=== PATIENT | female | born 1990 | race Caucasian/White ===

== ENCOUNTER → 2020-05-12 14:07 | Outpatient (CLI) | payer BC, SELFPAY ==
[2020-05-12 14:25] LABS: Add Manual Diff / Slide Review NO; Basophils Absolute Auto 0 /uL (0-100); Basophils Percent Auto 0.6 % (0-2); Eosinophils Absolute Auto 200 /uL (0-450); Hematocrit 38.7 % (36-46); Hemoglobin 13.1 g/dL (12.0-16.0); Lymphocytes Absolute Auto 1700 /uL (1100-4500); Lymphocytes Percent Auto 20.8 % (25-40); Mean Corpuscular HGB Conc 33.8 % (30-36); Mean Corpuscular Hemoglobin 30.7 PG (26-34); Mean Corpuscular Volume 90.6 fL (80-100); Monocytes Absolute Auto 700 /uL (0-900); Monocytes Percent Auto 8.6 % (3-14); Neutrophils Absolute Auto 5600 /uL (1500-7000); Platelet Count 235 X10^3/uL (150-400); Red Blood Cell Count 4.27 X10^6/uL (4.0-5.2); Red Cell Distribution Width 13.1 % (11.6-14.8); White Blood Cell Count 8.3 X10^3/uL (4.5-11.0)
[2020-05-12 15:28] LABS: Appearance Urine UA CLEAR; Bilirubin Urine UA NEGATIVE (NEGATIVE); Color Urine UA YELLOW; Glucose Urine UA 2+ g/dL (Negative); Ketones Urine UA NEGATIVE (NEGATIVE); Leukocyte Esterase Urine UA NEGATIVE (NEGATIVE); Nitrite Urine UA NEGATIVE (Negative); Occult Blood Urine UA TRACE-INTACT (Negative); Protein Urine UA NEGATIVE (Negative); Urobilinogen Urine UA 0.2 E.U./dL (0.2)
[2020-05-13 07:37] LABS: Varicella IgG Antibody 1214 index (Immune >165)
[2020-05-13 08:17] LABS: RPR Screen Non Reactive (Non Reactive)
[2020-05-14 05:17] LABS: Hepatitis B Surface Antigen NEGATIVE s/c (NEGATIVE); Rubella Antibody IgG 24.7 IU/mL (>15)
[2020-05-14 05:35] LABS: Hep C Virus Ab w/Reflex Quant NEGATIVE s/c (NEGATIVE)
[2020-05-14 09:21] LABS: HIV 1 & 2 Ab/Ag 4th Gen Combo NEGATIVE (NEGATIVE)
== END ==
PROVIDERS: Referring Provider Specialist; Visit Provider Specialist
DX: Z34.01 Encounter for supervision of normal first pregnancy, first trimester (principal)
CPT/HCPCS: 36415; 80055; 81003; 86787; 86803; 86850; 86900; 86901; 87086; 87389

== ENCOUNTER 2020-05-26 10:49 | Emergency (ER) | payer BC, SELFPAY ==
[2020-05-26 10:57] VITALS: BP 118/61; PULSE 94; RESP 16; TEMP 36.9; O2SAT 99
[2020-05-26] MEDS: ACETAMINOPHEN 325 MG TABLET 650 MG PO (11:16)
[2020-05-26] MEDS: LIDOCAINE PATCH 1 EACH ADH..PATCH TOP (11:17)
--- NOTE | 2020-05-26 11:20 | ED_ITS ---
HPI - Back Pain/Injury <Genaro Randolphskip [facility] - Last Filed: 05/26/20 12:11> General Chief Complaint: Back Pain/Injury Stated Complaint: pain in right leg x 2 weeks Time Seen by Provider: 05/26/20 10:52 Source: patient and family Mode of arrival: Wheelchair Limitations: no limitations History of Present Illness HPI Narrative: This is a 29 year female, nonsmoker, who is currently 11 wk +5 d ay EGA with LMP 03/05/2020 without contributory medical history presents to ED with significant other with chief complain of right low back pain radiating down to buttock and posterior leg up to knee for last 2 weeks. Patient denies injury, fall prior to discomfort occurred. Patient denies numbness, weakness to lower extremities, incontinence, rash on her back. She denies fever, chills, nausea or vomiting, urinary symptoms. She has not been taking any medications at home including Tylenol since she was in short this was safe during . Patient reports pain is not constant but rather intermittent, worsening with certain movements or laying on right side of back. Patient denies pain with sitting. Patient denies history of back pain. She does not have PCP but has seen Dr. Butler for 1st OB evaluation. Related Data Home Medications Medication Instructions Recorded Confirmed prenat.vits,luis,[id number] 1 tab PO DAILY 05/11/20 05/11/20 Previous Rx's Medication Instructions Recorded lidocaine 1 patch TOPICAL DAILY PRN #30 ea 05/26/20 Allergies Allergy/AdvReac Type Severity Reaction Status Date / Time No Known Drug Allergies Allergy Verified 05/11/20 12:13 Review of Systems <Genaro Tomasaskip [facility] - Last Filed: 05/26/20 12:11> Review of Systems Narrative: General: Denies fever, chills, fatigue, malaise, sweats. HEENT: Denies sinus pain, ear pain, sore throat, difficulty swallowing, dizziness. Respiratory: Denies dyspnea, cough, wheezing, hemoptysis, sputum. Cardiovascular: Denies chest pain, palpitations, orthopnea, edema. Gastrointestinal: Denies nausea, vomiting, abdominal pain, diarrhea, constipation, melena. : Denies dysuria, frequency, incontinence, hematuria, urinary retention. Musculoskeletal: See HPI Skin: Denies rash, skin lesions, or other. Neurologic: Denies weakness, headache, numbness, change in speech, confusion, seizures, incoordination. Psychiatric: No concerning psychosocial issues. 12-point review of systems is negative except for those stated above. Patient History <HUY Yousif - Last Filed: 05/26/20 12:11> Surgical History S/P LASIK surgery of both eyes (~2017) Family History Mother No problems noted. Father Hypertension Grandmother Stroke due to embolism Grandfather No problems noted. Grandmother Family estrangement Grandfather Cerebral thrombosis Family/Other Cancer Social History marital status: household members: spouse lives independently: Yes caregiver/support person: No housing: house pets and animals: Yes (1 dog: should be safe w baby.) education level: master's degree occupational status: employed current occupational exposures/hazards: No special ade needs: No seatbelt use: always Smoking Status: Never smoker second hand exposure: No ( smokes, but not around her.) alcohol intake: former substance use type: does not use and marijuana during the past year weight has: remained stable daily servings fruits/ve-4 caffeine: No frequency: does not exercise Smoking Status: Never smoker Substance Use Type: does not use Exam <HUY Yousif - Last Filed: 05/26/20 12:11> Narrative Exam Narrative: GEN: Alert, oriented x 3, well appearing and nourished, and in no acute distress. Head: Normal cephalic, atraumatic. No scalp or temporal tenderness, palpable mass or rash. EYES: Pupils are equal, round, and reactive to light and accommodation. Extraocular muscles are intact bilaterally. There is no subconjunctival hemorrhage, exudate and sclera non-icteric. ENT: Hearing grossly intact. Nose without bleeding, purulent discharge or deviation. Mucous membrane moist, no mucosal lesion. Throat without erythema, tonsillar hypertrophy or exudate. Uvula in midline, airway patent. Neck: Trachea in midline. No JVD, non-tender without lymphadenopathy. No masses or thyroid megaly. Supple, non-tender and no meningeal signs. CARDIAC: Normal regular rate and rhythm without murmurs, gallops, or rubs. No chest wall tenderness. No peripheral edema, cyanosis or pallor. Capillary refill is less than 2 seconds. RESPIRATORY: Lungs are clear to auscultate bilaterally. No cough, wheezes, rales, or rhonchi. No stridor, respiratory distress, increase work of breathing, or accessary muscle used. ABD: Abdomen soft, nontender and non-distended. No guarding or rebound tenderness to palpate. Bowel sounds are normal in all 4 quadrants. There is no palpable masses or organomegaly. EXT: Full painless ROM of all extremities with no loss of sensation, strength, effusion or edema. SKIN: Warm, dry, normal color for patient. No erythema, lesions or rash over visible areas. BACK: Nontender without deformity or crepitance. No flank tenderness. No rash. Negative leg raise. NEUROLOGICAL: Alert and oriented to place, time and person. Sensation and motor function intact bilaterally. No facial droops, dysphasia. PSYCHIATRIC: Good judgement and reason, without hallucinations, abnormal affect or abnormal behaviors during the examination. Patient is not suicidal. Initial Vital Signs Initial Vital Signs: Vital Signs Temperature 98.4 F 05/26/20 10:57 Pulse Rate 94 H 05/26/20 10:57 Respiratory Rate 16 05/26/20 10:57 Blood Pressure 118/61 05/26/20 10:57 Pulse Oximetry 99 05/26/20 10:57 <Marielle Sargent DO - Last Filed: 05/26/20 13:21> Initial Vital Signs Initial Vital Signs: Vital Signs Temperature 98.4 F 05/26/20 10:57 Pulse Rate 94 H 05/26/20 10:57 Respiratory Rate 16 05/26/20 10:57 Blood Pressure 118/61 05/26/20 10:57 Pulse Oximetry 99 05/26/20 10:57 Scores <HUY Yousif - Last Filed: 05/26/20 12:11> GCS Reuben coma scale eye opening: Spontaneous [place] coma scale verbal response: Orientated [place] coma scale motor response: Obey commands Reuben coma scale total score: 15 qSOFA Altered Mental Status (GCS <15): No Respiratory rate greater than/equal to 22: No Systolic blood pressure less than or equal to 100: No qSOFA Total: 0 0-1 Not High Risk 1-3 High risk Course <HUY Yousif - Last Filed: 05/26/20 12:11> Orders Ordered: Discontinued Medications Acetaminophen (Acetaminophen 325 Mg Tablet) 650 mg PO NOW ONE Stop: 05/26/20 11:11 Last Admin: 05/26/20 11:16 Dose: 650 mg Documented by: RUSS Lidocaine (Lidocaine Patch 1 Each Adh..Patch) 1 each TOP NOW ONE Stop: 05/26/20 11:11 Last Admin: 05/26/20 11:17 Dose: 1 each Documented by: RUSS Lidocaine (Remove Lidocaine Patch) 1 each TOP BEDTIME BORA Vital Signs Vital signs: Vital Signs - 8 hr 05/26/20 10:57 05/26/20 12:18 Temperature 98.4 F Pulse Rate 94 H 73 Respiratory Rate 16 15 Blood Pressure 118/61 115/57 L Pulse Oximetry 99 98 <Marielle Sargent DO - Last Filed: 05/26/20 13:21> Orders Ordered: Discontinued Medications Acetaminophen (Acetaminophen 325 Mg Tablet) 650 mg PO NOW ONE Stop: 05/26/20 11:11 Last Admin: 05/26/20 11:16 Dose: 650 mg Documented by: RUSS Lidocaine (Lidocaine Patch 1 Each Adh..Patch) 1 each TOP NOW ONE Stop: 05/26/20 11:11 Last Admin: 05/26/20 11:17 Dose: 1 each Documented by: RUSS Lidocaine (Remove Lidocaine Patch) 1 each TOP BEDTIME BORA Vital Signs Vital signs: Vital Signs - 8 hr 05/26/20 10:57 05/26/20 12:18 Temperature 98.4 F Pulse Rate 94 H 73 Respiratory Rate 16 15 Blood Pressure 118/61 115/57 L Pulse Oximetry 99 98 MDM - Back Pain/Injury <HUY Yousif - Last Filed: 05/26/20 12:11> Differential Diagnosis Differential diagnosis: Likely lumbar radiculopathy, sciatica, strain of lumbar region, renal colic and other (UTI) Medical Records Attestation: I reviewed the patient's medical records. Lab Data Attestation: I reviewed the patient's lab results. Labs: Point of Care Testing Glucose POC 81 Urine Dip Bedside Urine Glucose 1000 mg/dl Bedside Urine Ketone - Negative Urine Specific [place] 1.015 Bedside Urine Occult Blood - Negative Bedside Urine pH 6.0 Bedside Urine Urobilinogen +/- 1mg Bedside Urine Nitrite - Negative Bedside Urine Leukocytes - Negative Esterase MDM Narrative Medical decision making narrative: This is a 29-year-old female who presents to ED with chief complain of non traumatic right low back pain radiating down to buttock and up to posterior knee for last 2 weeks. No red flag symptoms related to back pain. She has not tried any home therapy since she is with 1st child and is currently in 1st trimester EGA. Patient was medicated with Tylenol and lidocaine patch with good effect and advised to same treatment at home. Urine test obtained to rule out UTI etiology for back pain which was negative indications for infection but shows greater than 1000 urine glucose. Concerned for increased serum glucose, POC fingerstick glucose obtained which shows as 81 mg/dL. Patient advised to follow-up with Dr. Butler who can monitor glucose closely during which she verbalized understanding. Return precautions discussed with patient and she verbalized understanding in agreement with the treatment plan. <Marielle Sargent, - Last Filed: 05/26/20 13:21> Lab Data Labs: Point of Care Testing Glucose POC 81 Urine Dip Bedside Urine Glucose 1000 mg/dl Bedside Urine Ketone - Negative Urine Specific [place] 1.015 Bedside Urine Occult Blood - Negative Bedside Urine pH 6.0 Bedside Urine Urobilinogen +/- 1mg Bedside Urine Nitrite - Negative Bedside Urine Leukocytes - Negative Esterase Discharge Plan Departure Patient Disposition: Home Clinical Impression: Glucose found in urine on examination Sciatica Qualifiers: Laterality: right Qualified Code(s): M54.31 - Sciatica, right side Instructions: DI for Back Pain With Sciatica Activity Restrictions/Additional Instructions: You have been diagnosed with [low back pain likely sciatica in right side. No indications for urinary tract infection. Incidental finding of glucose in urine. Fingerstick blood glucose was normal as 81 mg/dL. This should be followed up with Dr. Butler.]. What to do: *Take your medications as directed. You can take [id number] Tylenol 650- 1000 mg up to 3 to 4 times a day as needed for pain. You can continue to use lidocaine patch on affected site which stays on for 12 hours and off for 12 hours as needed for pain. As acute pain improves, please do gentle stretching exercise. Lidocaine patch has been transmitted to [facility] in [facility]. If this is too expensive, you can purchase [id number] lidocaine patch which is 4%. *Follow up with your primary care provider in 2-3 days, call for an appointment. Let them know you were seen in the ED and that we asked you to be seen in follow up. *Return to ED if you have any new, worsening, or concerning symptoms, such as [worsening pain, weakness/numbness/tingling in lower extremities, incontinence for bowel and bladder function, rash on her back, fever, or any acute concerns]. Prescriptions: New lidocaine 5 % adhesive patch,medicated 1 patch topical DAILY PRN (Reason: back pain) Qty: 30 RF: 0 No Action prenat.vits,luis,vpf-[id number] Tablet 1 tab PO DAILY RF: 0 Referrals: [facility] [Outside] Rachel Butler MD [Physician] - Stand Alone Forms: Work Release Note <Marielle Sargent DO - Last Filed: 05/26/20 13:21> Cosign ED Attending Benjaature Attestation: I was immediately available in the department for consultation. Documentation has been reviewed. I agree with assessment and plan.
[2020-05-26 12:18] VITALS: BP 115/57; PULSE 73; RESP 15; O2SAT 98
== END 2020-05-26 12:19 | disposition home or self-care (01) ==
PROVIDERS: Emergency Provider Nurse Practitioner Family
DX: M54.31 Sciatica, right side (principal); R81 Glycosuria
CPT/HCPCS: 81003; 82962; 99281; 99282

== ENCOUNTER → 2020-07-11 12:39 | Outpatient (CLI) | payer BC, SELFPAY ==
[2020-07-13 20:12] LABS: AFP, Serum 43.2 ng/mL (.); Calc Gestational Age Ultrasound (.); Estriol, Free 1.47 ng/mL (.); Inhibin A, Dimeric 270.09 pg/mL (.); Inhibin A, MoM 1.52 (.); Maternal Ethnicity Caucasian (.); Maternal Weight 125 lbs (.); Number of Fetuses No (.); OSBR Risk 1 IN 10000 (.); Results Report (.); Test Results *Screen Negative* (.); hCG, MoM 1.59 (.); hCG, Serum 49211 mIU/mL (.)
== END ==
PROVIDERS: Referring Provider Specialist; Visit Provider Specialist
DX: Z34.02 Encounter for supervision of normal first pregnancy, second trimester (principal); Z3A.18 18 weeks gestation of pregnancy
CPT/HCPCS: 36415; 82105; 82677; 84702; 86336

== ENCOUNTER → 2020-08-07 | Outpatient (CLI) | payer BC, OTHER, MEDICAID, SELFPAY ==
--- NOTE | 2020-08-07 15:07 | DI.US.S_ITS ---
PROCEDURE: US OB >= 14 WEEKS FETUS INDICATIONS: ANATOMY OUTSIDE/PRIOR DATING DATA: Last menstrual period (LMP): 03/05/20. LMP-based estimated date of delivery (ANALI): 12/10/20 . First dating scan (date and location): 05/12/20, by Dr. Butler . Estimated date of delivery (ANALI) from first dating scan: 12/09/20, by Dr. Butler . TECHNIQUE: Real-time scanning was performed of the fetus, with image documentation and biometric measurements. Endovaginal scanning: Not needed COMPARISON: [facility], , OB >= 14 WEEKS FETUS, 07/11/2020, 12:27. FINDINGS: General: A single living intrauterine gestation is present. Presentation: Vertex. Placenta: Placental position is posterior , without previa. Amniotic fluid index: 12.5 cm, normal range is 5-24 cm. heart rate: 160 beats per minute. Maternal cervical canal: 3.6 cm long. Normal lower limit is 2.5 cm. biometrics: Biparietal diameter: 5.8 cm, 23 weeks 5 days Head circumference: 20.3 cm, 22 weeks 3 days Abdominal circumference: 18.1 cm, 22 weeks 6 days Femur length: 3.7 cm, 21 weeks 6 days Estimated gestational age from initial scan: 22 weeks 2 days Composite gestational age from present scan: 22 weeks 5 days Estimated weight and percentile: 511 g, 56th percentile Measurement variability for biometric dating: +/- 7 days from 14 weeks to 15 weeks 6 days gestation, +/- 10 days from 16 weeks to 21 weeks 6 days gestation, +/- 2 weeks from 22 weeks to 27 weeks 6 days gestation, +/- 3 weeks for 28 weeks gestation or later. weight reference: 4500 g or EFW >90/95% is considered macrosomia or large for gestational age. EFW <10% is small for gestational age. EFW 5% or less is considered intra-uterine growth restriction. Anatomic survey: Neuro: Ventricles are non-dilated at less than 10 mm. Cisterna magna is normal at 3-11 mm. Cerebellum is normal in size and morphology. Nuchal skin fold: Normal at less than 6 mm between 14-21 weeks gestational age. Face: Nose and lips, facial profile are normal. Spine: No evidence for spina bifida. Heart: 4-chambered heart is present, with normal ventricular outflow tracts. Diaphragm: Diaphragm is intact. Stomach: Left-sided stomach is present. Kidneys: Mild right-sided hydronephrosis. Normal is less than 5 mm in 2nd trimester, less than 7 mm in 3rd trimester. Cord: 3-vessel cord has orthotopic insertion. Bladder: Normal in size. Extremities: All 4 extremities identified. IMPRESSION: Normal survey of anatomy except for mild right-sided hydronephrosis at the threshold for hydronephrosis at 5 mm. Third trimester assessment of renal caliber on the right is recommended. Appropriate interval growth, normal amniotic fluid volume, vertex presentation. Dictated by: Kenneth Allen M.D. on 08/07/2020 at 17:38 Approved by: Kenneth Allen M.D. on 08/07/2020 at 17:42
== END ==
PROVIDERS: Referring Provider Specialist; Visit Provider Specialist
DX: Z34.02 Encounter for supervision of normal first pregnancy, second trimester (principal); Z3A.22 22 weeks gestation of pregnancy
CPT/HCPCS: 76811

== ENCOUNTER → 2020-08-28 13:31 | Outpatient (CLI) | payer BC, OTHER, MEDICAID, SELFPAY ==
[2020-08-28 15:23] LABS: Hematocrit 33.6 % (36-46); Hemoglobin 11.3 g/dL (12.0-16.0)
[2020-08-28 16:48] LABS: GTT (PREG) 1 Hour PP 50gm Dose 154 mg/dL (76-139)
== END ==
PROVIDERS: Referring Provider Specialist; Visit Provider Specialist
DX: Z34.82 Encounter for supervision of other normal pregnancy, second trimester (principal); Z3A.25 25 weeks gestation of pregnancy
CPT/HCPCS: 36415; 82950; 85014; 85018

== ENCOUNTER → 2020-10-06 12:46 | Outpatient (CLI) | payer OTHER, MEDICAID, SELFPAY ==
--- NOTE | 2020-10-06 12:48 | DI.US.S_ITS ---
PROCEDURE: US OB FOLLOW UP INDICATIONS: F/U HYDRONEPHROSIS OUTSIDE/PRIOR DATING DATA: Last menstrual period (LMP): 03/05/2020. LMP-based estimated date of delivery (ANALI): 12/10/2020 . First dating scan (date and location): 05/12/2020 Estimated date of delivery (ANALI) from first dating scan: 12/09/2020 . TECHNIQUE: Real-time scanning was performed of the fetus, with image documentation and biometric measurements. Endovaginal scanning: No COMPARISON: [facility], , OB >= 14 WEEKS FETUS, 08/07/2020, 15:15. FINDINGS: General: A single living intrauterine gestation is present. Presentation: Vertex. Placenta: Placental position is posterior , without previa. Amniotic fluid index: 13.6 cm, normal range is 5-24 cm. heart rate: 150 beats per minute. Maternal cervical canal: 3.1 cm long. Normal lower limit is 2.5 cm. Renal pelves are normal measuring 2 mm bilaterally. IMPRESSION: Single living IUP redemonstrated and no hydronephrosis is present. Dictated by: Morteza Alexander [facility] Interpreted: Arthur Ledezma MD on 10/06/2020 at 13:53 Transcribed by: ABRAM on 10/06/2020 at 13:56 Approved by: Arthur Ledezma M.D. on 10/06/2020 at 14:46
== END ==
PROVIDERS: Referring Provider Obstetrics & Gynecology; Visit Provider Obstetrics & Gynecology
DX: Z36.2 Encounter for other antenatal screening follow-up (principal); Z3A.26 26 weeks gestation of pregnancy
CPT/HCPCS: 76816

== ENCOUNTER → 2020-11-17 15:56 | Outpatient (CLI) | payer OTHER, MEDICAID, SELFPAY ==
[2020-11-18 13:12] LABS: Strep Grp B PCR NEG for Grp B Strep
== END ==
PROVIDERS: Visit Provider Specialist
DX: Z34.03 Encounter for supervision of normal first pregnancy, third trimester (principal); Z3A.35 35 weeks gestation of pregnancy
CPT/HCPCS: 87653

== ENCOUNTER 2020-12-04 15:39 | Inpatient (IN) | payer OTHER, MEDICAID, SELFPAY ==
--- NOTE | 2020-12-04 17:13 | P.HPOB_ITS ---
OB HPI Date/Time Date of admission: 12/04/20 Date Patient Seen: 12/04/20 Time Patient Seen: 17:13 History of Present Condition Chief complaint: Observation : 1 Para: 0 Estimated Date of Delivery: 12/10/20 Estimated Gestational Age (weeks): 38 Narrative: Adamaris Ledezma is a 30 year old female who had been scheduled for primary low-transverse section for LGA arrived on Labor and delivery with PROM Indications Operative indications ( section): elective (4500 g fetus on ultrasound with gestational diabetes on metformin) History of Present care: good care, initiated at week # (9), number of visits (10) and pounds weight gain (51) Dating criteria: LMP confirmed by 1st trimester US Ultrasounds: normal mid trimester US Obstetrical complications: gestational diabetes (on metformin) Medical complications: none Preadmission Labs Blood type: AB (+) positive -: Antibody screen: negative, GBS status: negative, HBsAG: negative, HIV: negative and RPR/VDLR: negative -: Chlamydia screen: not detected and Gonorrhea screen: not detected -: Rubella: immune and Varicella: immune HCAB: negative Quad screen: Normal 1 hr GTT: 157 Narrative: Patient unable to tolerate 3 hour glucose tolerance test. She monitored blood sugars with diet control and was started on metformin Evaluation Evaluation Baseline heart rate: 130 Variability: Moderate (11-25) monitor accelerations: Present Monitor Decelerations: Absent Contraction Frequency (minutes): 0 Category of Tracing: Reactive Status: Category l Cervical dilation (cm): 1 Cervical effacement (%): 50 station: -3 Non-invasive Membranes Rupture Test: positive [facility] Surgical History S/P LASIK surgery of both eyes (~2017) Family History Mother No problems noted. Father Hypertension Grandmother Stroke due to embolism Grandfather No problems noted. Grandmother Family estrangement Grandfather Cerebral thrombosis Family/Other Cancer Social History marital status: household members: spouse lives independently: Yes caregiver/support person: No housing: house pets and animals: Yes (1 dog: should be safe w baby.) education level: master's degree occupational status: employed current occupational exposures/hazards: No special ade needs: No seatbelt use: always Smoking Status: Never smoker second hand exposure: No ( smokes, but not around her.) alcohol intake: former substance use type: does not use and marijuana during the past year weight has: remained stable daily servings fruits/ve-4 caffeine: No frequency: does not exercise Meds Home Medications and Allergies Home Medications Medication Instructions Recorded Confirmed Type prenat.vits,luis,kik-rkdu-ywsit 1 tab PO DAILY 05/11/20 12/04/20 History lidocaine 5 % topical patch 1 patch TOPICAL DAILY PRN #30 ea 05/26/20 12/04/20 Rx blood-glucose meter #1 ea 09/21/20 11/28/20 Rx lancets 30 gauge and blood glucose #100 ea 11/01/20 11/28/20 Rx strips combo pack metformin 500 mg tablet 500 mg PO BID #60 tab 11/01/20 12/04/20 Rx Allergies Allergy/AdvReac Type Severity Reaction Status Date / Time No Known Drug Allergies Allergy Verified 11/28/20 15:22 Review of Systems Review of Systems Narrative: Patient had leakage of fluid but no contractions. Good movement. No headaches, scotomata, epigastric pain. Exam Vital Signs (past 8 hours): Blood pressure 129/84, pulse of 80, temperature 36.7? Narrative Exam Narrative: HEENT exam within normal limits. Lungs are clear to auscultation percussion. Heart is regular rate and rhythm no S3-S4 murmurs. Abdomen is gravid. Fetus is vertex. Extremities without edema and nontender. Assessment and Plan Assessment and Plan Assessment and Plan narrative: 38 week gestation with gestational diabetes on metformin who had premature rupture membranes without labor. Patient is scheduled for section for 4500 g baby. 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 The risk of damage to internal structures such as bowel, bladder, ureters that could require additional surgery to repair. Possible risk of infection and bleeding that could require a blood transfusion. Reaction to medication or anesthesia. Consent form signed and questions answered. cosigned the consent form.
[2020-12-04] MEDS: LACTATED RINGERS 1,000 ML 100 ML IV ×3 (17:30→20:15)
[2020-12-04 17:35] LABS: Add Manual Diff / Slide Review NO; Basophils Absolute Auto 100 /uL (0-100); Eosinophils Absolute Auto 100 /uL (0-450); Hematocrit 34.4 % (36-46); Hemoglobin 11.2 g/dL (12.0-16.0); Lymphocytes Absolute Auto 1600 /uL (1100-4500); Lymphocytes Percent Auto 23.9 % (25-40); Mean Corpuscular HGB Conc 32.7 % (30-36); Mean Corpuscular Volume 79.6 fL (80-100); Monocytes Absolute Auto 600 /uL (0-900); Monocytes Percent Auto 9.6 % (3-14); Neutrophils Absolute Auto 4200 /uL (1500-7000); Neutrophils Percent Auto 64.5 % (50-75); Platelet Count 243 X10^3/uL (150-400); Red Blood Cell Count 4.31 X10^6/uL (4.0-5.2); White Blood Cell Count 6.6 X10^3/uL (4.5-11.0)
[2020-12-04 17:56] LABS: COVID19 - ADMIT (NP swab/PCR) Negative (Negative)
[2020-12-04] MEDS: CEFAZOLIN 1 GM VIAL 2 GM IV (18:26)
--- NOTE | 2020-12-04 18:44 | SUR.OPER ---
Supine on Padded OR bed, head on pillow, safety belt at thigh, arms secured on padded arm boards at <90 degrees abduction. Bump under right buttock. Legs uncrossed with pillow under knees, gel pad to heels, tape over blanket to lower legs.
--- NOTE | 2020-12-04 18:48 | SUR.OPER ---
VIABLE MALE INFANT DELIVERED AT 1837. CORD BLOOD AND PLACENTA TO OB WITH RN.
[2020-12-04 19:12] VITALS: BP 108/45; PULSE 70; RESP 16; TEMP 36.3; O2SAT 100
[2020-12-04 19:17] VITALS: BP 106/64; PULSE 70; RESP 14; O2SAT 100
[2020-12-04 19:19] VITALS: BP 106/64; PULSE 69; RESP 14; O2SAT 99
--- NOTE | 2020-12-04 19:19 | PM.OBCS.1 ---
Operative Date/Time/Diagnoses Date of procedure: 12/04/20 Time of procedure: 19:19 Pre-op diagnosis: 38 week gestation, PROM, gestational diabetes, and LGA infant for primary low-transverse section Post-op diagnosis: same Procedure & Clinicians Procedure: Primary low-transverse section Same procedure as scheduled: Yes Indications: 38 week gestation with PROM who had been scheduled for primary low-transverse section for gestational diabetes and measuring by ultrasound approximately 4500 g. Surgeon: Rachel Butler [employer] Technician: Tammi Vilchis Anesthesia Type: Spinal Operative Notes Findings: Normal tubes, ovaries, uterus. Viable male with Apgars of 9 and 9 weighing 9 lb 8.9 oz Closure Type: primary Specimen(s): cord blood Intraoperative meds administered: Duramorph, Ketorolac and Pitocin Applied: Catheter (Tenorio) Estimated Blood Loss (mL): 300 Blood products transfused: none Complications: none [facility] Baby 1: Gender: Male Presentation: vertex Position: Left Occiput Transverse Placental Delivery Description: Expressed Cord Vessel Description: 3 Vessels score (1 min): 9 score (5 min): 9 weight: 9 lb 8 oz Narrative: The patient was brought to the operating room where she underwent a spinal for anesthesia. She was placed in a supine position with a left lateral tilt. A Tenorio catheter was placed. Pulsatile stockings were placed and functional throughout the case. 2 g of Ancef were given IV prior to the incision. Warming was in place. The patient was prepped and draped in usual sterile fashion. A low transverse incision was made with a scalpel and the incision was carried down to the fascial layer which was incised transversely with scissors. The public aid eligibility assistant did her side of the incision. The midline attachments are superiorly and inferiorly. Some bleeding was controlled Bovie. The rectus muscles were in the midline and the peritoneal incision was made with no damage to internal structures. The peritoneum was incised and superiorly and inferiorly. The incision was stretched with the surgeon and public aid eligibility assistant placing traction. Bladder blade was placed and a bladder flap was developed and the bladder held away from the lower uterine segment. An incision was made in the uterus with the scalpel and the incision was extended with stretching. The head was elevated out of the abdomen and with fundal pressure by the public aid eligibility assistant the baby was delivered. The infant was bulb suctioned for clear fluid and handed off to the warmer. Cord blood was collected. The placenta delivered spontaneously with traction. The uterus was cleaned with clean laps. The uterine incision was closed in 2 layers of 0 chromic suture the first a running locking layer the second an imbricating layer. The public aid eligibility assistant was helping to expose the incision. The bladder peritoneum was repaired with 2-0 Vicryl suture. The gutters were cleaned of any remaining fluids and ovaries and tubes were observed to be normal. Adequate hemostasis was noted. The peritoneum was closed with 2-0 Vicryl suture. The fascia layer was closed with 0 Vicryl suture with 2 stitches. The public aid eligibility assistant repairing half the incision with helping to retract and expose the incision for the other half. The incision was irrigated and adequate hemostasis noted. The incision was closed with interrupted 3-0 Vicryl sutures and then a subcuticular stitch of 4-0 Vicryl suture. Steri-Strips were placed. The uterus was massaged to remove any clots. The patient went to recovery room in good condition. Counts of instruments and sponges were correct. Dr. Vilchis was present throughout the case to assist with retraction, fundal pressure to deliver the infant, and suturing half the fascia. Post-operative Condition: stable Disposition: other ( Center) Aftercare: routine postop
[2020-12-04 19:24] VITALS: BP 104/67; PULSE 69; RESP 16; TEMP 36.6; O2SAT 99
--- NOTE | 2020-12-04 19:27 | SUR.PHASEI ---
[id number] =[id number]
--- NOTE | 2020-12-04 19:32 | SUR.PHASEI ---
pain level 3/10 crampy pain.
[2020-12-04 20:56] VITALS: BP 111/67
[2020-12-05] MEDS: KETOROLAC 30 MG/ML VIAL IV ×2 (01:43→07:54)
[2020-12-05] MEDS: LACTATED RINGERS 1,000 ML 100 ML IV (03:54)
[2020-12-05] MEDS: diphenhydrAMINE 50 MG/ML VIAL 25 MG IV (04:25)
[2020-12-05 06:24] LABS: Add Manual Diff / Slide Review NO; Basophils Absolute Auto 0 /uL (0-100); Basophils Percent Auto 0.2 % (0-2); Eosinophils Absolute Auto 100 /uL (0-450); Eosinophils Percent Auto 0.9 % (2-4); Hematocrit 27.3 % (36-46); Hemoglobin 8.8 g/dL (12.0-16.0); Lymphocytes Absolute Auto 1000 /uL (1100-4500); Lymphocytes Percent Auto 14.4 % (25-40); Mean Corpuscular HGB Conc 32.4 % (30-36); Mean Corpuscular Volume 80.2 fL (80-100); Monocytes Absolute Auto 600 /uL (0-900); Monocytes Percent Auto 8.3 % (3-14); Neutrophils Absolute Auto 5500 /uL (1500-7000); Neutrophils Percent Auto 76.2 % (50-75); Platelet Count 177 X10^3/uL (150-400); Red Blood Cell Count 3.41 X10^6/uL (4.0-5.2); Red Cell Distribution Width 15.8 % (11.6-14.8); White Blood Cell Count 7.2 X10^3/uL (4.5-11.0)
[2020-12-05] MEDS: ACETAMINOPHEN 325 MG TABLET 650 MG PO ×3 (07:55→22:27)
[2020-12-05] MEDS: FERROUS SULFATE 325 MG TABLET PO (11:25)
[2020-12-05] MEDS: DOCUSATE 100 MG CAPSULE 200 MG PO (11:25)
[2020-12-05] MEDS: PRENATAL VIT,CALC/IRON/FOLIC 1 TABLET 1 TAB PO (11:25)
--- NOTE | 2020-12-05 18:12 | P.PNOB_ITS ---
Subjective - OB Subjective Patient comments: pain well controlled, tolerating diet and flatus present Enochs baby status: doing well and nursing well Enochs feeding status: exclusively breast feeding Date Patient Seen: 12/05/20 Time Patient Seen: 18:13 Interval history: Postoperative day 1 primary low transverse section doing extremely well. She is ambulatory. She is tolerating regular diet. She is passing gas and urinating well. Exam Vital Signs (past 8 hours): Blood pressure 125/82, pulse 78, temperature 98.2? Oxygen Delivery Method Room Air Narrative Exam Narrative: Patient's abdomen is soft, nontender. Uterus is firm, at U, appropriately tender. Dressing is clean, dry, intact. Mild lochia. Extremities without edema and nontender Objective Labs Result Diagrams: 12/05/20 06:00 Labs: Laboratory Results - last 24 hr 12/04/20 12/05/20 17:25 06:00 WBC 7.2 RBC 3.41 L Hgb 8.8 L Hct 27.3 L MCV 80.2 MCH 26.0 MCHC 32.4 RDW 15.8 H Plt Count 177 Neut % (Auto) 76.2 H Lymph % (Auto) 14.[address] [place] % (Auto) 8.3 Eos % (Auto) 0.9 L Baso % (Auto) 0.2 Neut # (Auto) 5500 Lymph # (Auto) [address] [place] # (Auto) 600 Eos # (Auto) 100 Baso # (Auto) 0 Blood Type AB Positive Antibody Screen Negative Assessment & Plan Assessment and Plan (1) Delivery by section using transverse incision of lower segment of uterus: Status: Acute (2) Acute on chronic blood loss anemia: Status: Acute Plan day: 1 plan OB: routine postop care Comments: Patient doing extremely well. Plan to go home tomorrow. Time Spent With Patient Time: Total time spent is greater than 50% in coordination of care (as documented) at patient's floor/unit and/or counseling patient: Time with patient: less than 15 minutes
[2020-12-05] MEDS: IBUPROFEN 600 MG TABLET PO (20:13)
[2020-12-06] MEDS: IBUPROFEN 600 MG TABLET PO ×3 (02:30→14:17)
[2020-12-06] MEDS: DOCUSATE 100 MG CAPSULE 200 MG PO (08:40)
[2020-12-06] MEDS: PRENATAL VIT,CALC/IRON/FOLIC 1 TABLET 1 TAB PO (08:40)
[2020-12-06] MEDS: FERROUS SULFATE 325 MG TABLET PO (08:40)
[2020-12-06] MEDS: ACETAMINOPHEN 325 MG TABLET 650 MG PO ×2 (08:41→14:18)
[2020-12-06 13:18] VITALS: BP 111/67; PULSE 69; RESP 16; TEMP 36.6
== END 2020-12-06 14:30 | disposition home or self-care (01) | DRG 540 ==
PROVIDERS: Specialist; Admitting Provider Obstetrics & Gynecology; Referring Provider Obstetrics & Gynecology; Visit Provider Obstetrics & Gynecology
PROC: 10D00Z1 Extraction of Products of Conception, Low, Open Approach (ICD-10-PCS; CPT 59514; principal; 2020-12-04 17:15)
DX: O24.425 Gestational diabetes mellitus in childbirth, controlled by oral hypoglycemic drugs (principal); Z3A.38 38 weeks gestation of pregnancy; Z37.0 Single live birth; O99.02 Anemia complicating childbirth; D62 Acute posthemorrhagic anemia; Z20.822 Contact with and (suspected) exposure to COVID-19
CPT/HCPCS: 36415; 59050; 59514; 84112; 85025; 86850; 86900; 86901; 87635; C9803; G0379; J0690; J1200; J1885; J2274; J2405; J2590